=== PATIENT | male | born 1970 | race Caucasian/White ===

== ENCOUNTER 2016-11-23 08:00 | Day surgery (SDC) | payer BC ==
[2016-11-23] MEDS ORDERED: Lactated Ringers 1,000 ML IV SCH (08:30)
[2016-11-23] MEDS ORDERED: Propofol 200 MG/20 ML SDV ONE (09:15)
[2016-11-23] MEDS ORDERED: fentaNYL 100 MCG/2 ML SDV ONE (09:15)
[2016-11-23] MEDS ORDERED: Midazolam 1 MG/ML 2 ML SDV ONE (09:15)
[2016-11-23 10:33] VITALS: BP 108/74
--- NOTE | 2016-11-30 09:51 | OR ---
DATE OF PROCEDURE: 11/23/2016 PREOPERATIVE DIAGNOSIS: Pelvic pain. POSTOPERATIVE DIAGNOSES: Diverticulosis and pelvic pain. PROCEDURE: Colonoscopy to the cecum. ANESTHESIA: IV anesthesia with monitored anesthesia care. INDICATION: This 46-year-old white male is referred for a colonoscopy because of pelvic pain. I counseled him for the procedure including risks and alternatives and he gave his informed consent to proceed. PROCEDURE IN DETAIL: The patient was placed in a left lateral decubitus position. IV anesthesia was administered by the Anesthesia Service. Time-out was held. A rectal exam was performed, which was unremarkable. The flexible video Olympus colonoscope was introduced through his anus, up his rectum, and out his colon all way to the cecum. En route, we saw a few scattered left-sided diverticula. There was no bleeding or inflammation associated with them. Once the cecum was reached, the scope was slowly withdrawn examining the mucosa throughout. No additional mucosal abnormalities were noted. The scope was retroflexed in the rectum with the distal rectum appearing unremarkable. The scope was straightened and removed. He tolerated the procedure well. Valerio Chase MD /[id number] MTDD
== END 2016-11-23 11:09 | disposition home or self-care (01) ==
LOC: JP.SDS 08:00
PROVIDERS: ATTEND Surgery
DX: R10.2 Pelvic and perineal pain (principal); K57.30 Diverticulosis of large intestine without perforation or abscess without bleeding; H93.13 Tinnitus, bilateral; K21.9 Gastro-esophageal reflux disease without esophagitis; E55.9 Vitamin D deficiency, unspecified; R00.2 Palpitations; R53.83 Other fatigue; G47.33 Obstructive sleep apnea (adult) (pediatric); G47.61 Periodic limb movement disorder; Z79.899 Other long term (current) drug therapy
CPT/HCPCS: 45378; J2250; J2704; J3010; J7120

== ENCOUNTER 2022-08-07 06:22 | Day surgery (SDC) | payer BC ==
[2022-08-07] MEDS ORDERED: Lactated Ringers 1,000 ML IV SCH (06:30)
[2022-08-07] MEDS ORDERED: Propofol 200 MG/20 ML SDV ONE ×2 (07:25→08:19)
[2022-08-07] MEDS ORDERED: Midazolam 1 MG/ML 2 ML SDV ONE (07:25)
[2022-08-07] MEDS ORDERED: fentaNYL 50 MCG/ML SDV ONE (07:25)
[2022-08-07 09:31] VITALS: BP 105/56; PULSE 58
== END 2022-08-07 09:47 | disposition home or self-care (01) ==
LOC: JP.SDS 06:22
PROVIDERS: ATTEND Family Medicine
DX: K31.7 Polyp of stomach and duodenum (principal); K21.9 Gastro-esophageal reflux disease without esophagitis; K57.30 Diverticulosis of large intestine without perforation or abscess without bleeding; G47.33 Obstructive sleep apnea (adult) (pediatric); Z90.49 Acquired absence of other specified parts of digestive tract; Z79.899 Other long term (current) drug therapy
CPT/HCPCS: 88305; J2250; J2704; J3010; J7120